=== PATIENT | male | born 1970 | race Caucasian/White ===

== ENCOUNTER 2016-06-19 05:57 | Emergency (ER) | payer BC ==
[2016-06-19 06:05] VITALS: BMI 30.1
[2016-06-19 06:10] VITALS: RESP 16
[2016-06-19] MEDS ORDERED: DiphenhydrAMINE 50 mg/ml Inj IVP STA (06:24)
--- NOTE | 2016-06-19 06:25 | ED PDOC ---
Arrival/HPI - History of Present Illness Time/Duration: Prior to Arrival Symptom Onset: Sudden Symptom Course: Unchanged Quality: Stabbing, Throbbing Severity Level: 10 Activities at Onset: Rest <Flor Ho - Last Filed: 06/19/16 07:05> <Bipin France - Last Filed: 06/19/16 11:22> - General Chief Complaint: Headache Time Seen by Provider: 06/19/16 06:00 - History of Present Illness Narrative History of Present Illness (Text): 06/19/16 06:25 46 yo M with no past medical history presents to ER with c/o waking up from sleep this morning with holocephalic headache. Patient's is at bedside and states patient sometimes gets sinus headaches but has never had anything like this before. Patient admits to photophobia, otherwise denies nausea, vomiting, recent travel, recent illness, sick contacts, CP, SOB, abd pain, fevers, chills. Patient described headache as 10/10 holocephalic, throbbing, sharp, constant headache with no alleviating factors. Patient's states he had no problems prior to this episode. (Flor Ho) Past Medical History - Provider Review Nursing Documentation Reviewed: Yes - Travel History Have you recently traveled outside [place] w/in the past 3 mons?: No - Psychiatric Hx Substance Use: No <Flor Ho - Last Filed: 06/19/16 07:05> Family/Social History - Physician Review Nursing Documentation Reviewed: Yes Family/Social History: Unknown Family HX Smoking Status: Never Smoked Hx Alcohol Use: No Hx Substance Use: No <Flor Ho - Last Filed: 06/19/16 07:05> Allergies/Home Meds <Flor Ho - Last Filed: 06/19/16 07:05> <Bipin France - Last Filed: 06/19/16 11:22> Allergies/Adverse Reactions: Allergies No Known Allergies Allergy (Verified 06/19/16 06:04) Home Medications: Home Meds Medication Instructions Recorded Confirmed No Known Home Med 06/19/16 06/19/16 Review of Systems - Physician Review All systems were reviewed & negative as marked: Yes - Review of Systems Constitutional: absent: Fatigue, Fevers Eyes: absent: Vision Changes ENT: absent: Hearing Changes, Tinnitus, Sinus Congestion Respiratory: absent: SOB, Cough Cardiovascular: absent: Chest Pain, Palpitations, Syncope Gastrointestinal: absent: Abdominal Pain, Diarrhea, Vomiting, Hematochezia, Hematemesis Genitourinary Male: absent: Dysuria, Frequency Musculoskeletal: absent: Back Pain, Neck Pain, Myalgias Skin: absent: Rash, Skin Lesions Neurological: Headache. absent: Dizziness, Focal Weakness, Facial Droop, Disequilibrium, Seizure Hemo/Lymphatic: absent: Easy Bleeding, Easy Bruising Psychiatric: absent: Anxiety, Depression <Flor Ho Filed: 06/19/16 07:05> Physical Exam Vital Signs Reviewed: Yes Temperature: Afebrile Blood Pressure: Hypertensive Pulse: Regular Respiratory Rate: Normal Appearance: Positive for: Non-Toxic, Uncomfortable Mental Status: Positive for: Alert and Oriented X 3 - Systems Exam Head: Present: Atraumatic, Normocephalic Pupils: Present: PERRL Extroacular Muscles: Present: EOMI Conjunctiva: Present: Normal Mouth: Present: Moist Mucous Membranes Neck: No: Meningeal Signs, JVD Respiratory/Chest: Present: Clear to Auscultation, Good Air Exchange. No: Respiratory Distress, Accessory Muscle Use, Wheezes, Rhonchi Cardiovascular: Present: Regular Rate and Rhythm, Normal S1, S2 Abdomen: Present: Normal Bowel Sounds. No: Tenderness, Distention, Peritoneal Signs Upper Extremity: Present: Normal Inspection. No: Cyanosis, Edema Lower Extremity: Present: Normal Inspection. No: Edema, CALF TENDERNESS Neurological: Present: GCS=15, CN II-XII Intact, Speech Normal Skin: Present: Warm, Dry, Normal Color. No: Rashes Psychiatric: Present: Alert, Oriented x 3 <Flor Ho Filed: 06/19/16 07:05> Vital Signs Temp Pulse Resp BP Pulse Ox 06/19/16 08:00 60 16 137/80 97 06/19/16 06:48 62 16 151/90 H 98 06/19/16 06:09 97.9 F 58 L 16 167/98 H 99 Medical Decision Making Re-evaluation Time: 06:55 Reassessment Condition: Re-examined, Improved - EKG Interpretation Interpreted by ED Physician: Yes Type: 12 lead EKG <Flor Ho Filed: 06/19/16 07:05> <Bipin France - Last Filed: 06/19/16 11:22> ED Course and Treatment: 06/19/16 06:38 46 yo M w no history presents with 10/10 holocephalic throbbing, dull, constant headache. CT head to r/o ICH. Decadron, Benadryl, Reglan. Labs, EKG. Reassess and dispo. 06/19/16 06:55 Patient states he is feeling better, light slightly less bothersome. Has not yet received Decadron and states his headache is minimal s/p reglan. CT head negative for ICH. 06/19/16 07:[address] Navarro. ([facility]) 06/19/16 06:40 Pt. was interviewed and examined along with the medical sales specialist.Concurr with physical findings ,assessment and treatment plan. (Bipin France) - Lab Interpretations Lab Results: 06/19/16 06:50 06/19/16 06:50 Lab Results 06/19/16 06:50: WBC 5.1, RBC 4.60, Hgb 13.7 L, Hct 39.6 L, MCV 86.1, MCH 29.8, MCHC 34.6, RDW 13.7, Plt Count 230, MPV 11.4 H, Gran % 56.0, Lymph % (Auto) 36.9 H, [place] % (Auto) 5.5, Eos % (Auto) 1.2 L, Baso % (Auto) 0.4, Gran # 2.87, Lymph # 1.9, [place] # 0.3, Eos # 0.1, Baso # 0.02, PT 11.8, INR 1.09 H, APTT 25.4 , Sodium 141, Potassium 3.3 L, Chloride 105, Carbon Dioxide 24, Anion Gap 15, BUN 8, Creatinine 0.9, Est GFR ( Amer) > 60, Est GFR (Non-Af Amer) > 60, Random Glucose 116 H, Calcium 8.7, Total Bilirubin 0.7, AST 34, ALT 40, Alkaline Phosphatase 60, Total Protein 7.5, Albumin 3.7, Globulin 3.8, Albumin/ Globulin Ratio 1.0 L, Blood Type B POSITIVE, Antibody Screen Negative, BBK History Checked No verified bt - RAD Interpretation Radiology Orders: 06/19/16 06:17 HEAD W/O CONTRAST [CT] Stat 06/19/16 08:52 BRAIN WITHOUT CONTRAST [MRI] Stat MRA HEAD WITHOUT CONTRAST [MRI] Stat - EKG Interpretation EKG Interpretation (Text): 06/19/16 07:01 NSR 61bpm, 1st degree AVB (TX 222ms), no ischemic changes (Flor Ho) - Medication Orders Current Medication Orders: Discontinued Medications Dexamethasone (Decadron Inj) 10 mg IVP STAT STA Stop: 06/19/16 06:47 Last Admin: 06/19/16 07:12 Dose: Not Given Non-Admin Reason: Patient Refused Diphenhydramine HCl (Benadryl) 25 mg IVP STAT STA Stop: 06/19/16 06:25 Last Admin: 06/19/16 06:42 Dose: 25 MG IVP Administration Document 06/19/16 06:42 YP (Rec: 06/19/16 06:42 [facility] [id number] Charges for Administration # of IVP Administrations 1 Ketorolac Tromethamine (Toradol) 30 mg IVP STAT STA Stop: 06/19/16 06:59 Last Admin: 06/19/16 07:12 Dose: Not Given Non-Admin Reason: Patient Refused Metoclopramide HCl (Reglan) 10 mg IVP STAT STA Stop: 06/19/16 06:25 Last Admin: 06/19/16 06:42 Dose: 10 MG IVP Administration Document 06/19/16 06:42 YP (Rec: 06/19/16 06:42 [facility] [id number] Charges for Administration # of IVP Administrations 1 Potassium Chloride (K-Dur 20 Meq Er Tab) 20 meq PO STAT STA Stop: 06/19/16 07:49 Last Admin: 06/19/16 08:24 Dose: 20 MEQ - PA / ACCOUNTANT CONTROLLER / Resident Statement RHONDA has reviewed & agrees with the documentation as recorded. / has examined the patient and agrees with the treatment plan. <Bipin [place] - Last Filed: 06/19/16 11:22> Disposition/Present on Arrival - Present on Arrival Any Indicators Present on Arrival: No History of DVT/PE: No History of Uncontrolled Diabetes: No Urinary Catheter: No History of Decub. Ulcer: No History Surgical Site Infection Following: None <Flor Ho - Last Filed: 06/19/16 07:05> - Present on Arrival Any Indicators Present on Arrival: No - Disposition Have Diagnosis and Disposition been Completed?: No Disposition Time: 07:00 <Bipin France - Last Filed: 06/19/16 11:22> - Disposition Diagnosis: Headache Condition: STABLE Referrals: PCP,NO [Primary Care Provider] - Follow up with primary
[2016-06-19 06:54] LABS: ADD MANUAL DIFF? NO
[2016-06-19 07:02] LABS: BASO # 0.02 K/mm3 (0.0-2.0); BASO % 0.4 % (0.0-3.0); EOS # 0.1 (0.0-0.7); EOS % 1.2 % (1.5-5.0); GRAN # 2.87 (1.4-6.5); HEMATOCRIT 39.6 % (42.0-52.0); LYMPH # 1.9 (1.2-3.4); LYMPH % 36.9 % (22.0-35.0); MEAN CELL VOLUME 86.1 fL (80.0-105.0); MEAN CORPUSCULAR HEMOGLOBIN 29.8 pg (25.0-35.0); MEAN CORPUSCULAR HGB CONC 34.6 g/dl (31.0-37.0); MEAN PLATELET VOLUME 11.4 fl (7.0-11.0); MONO # 0.3 (0.1-0.6); MONO % 5.5 % (1.0-6.0); PLATELET COUNT 230 10^3/uL (120.0-450.0); RED CELL DISTRIBUTION WIDTH 13.7 % (11.5-14.5); WHITE BLOOD COUNT 5.1 10^3/ul (4.5-11.0)
[2016-06-19 07:10] LABS: INR 1.09 (0.93-1.08); PARTIAL THROMBOPLASTIN TIME 25.4 Seconds (23.7-30.8)
[2016-06-19 07:16] LABS: ALKALINE PHOSPHATASE 60 U/L (38-133); ALT/SGPT 40 U/L (7-56); AST/SGOT 34 U/L (15-59); BILIRUBIN,TOTAL 0.7 mg/dL (0.2-1.3); BLOOD UREA NITROGEN 8 mg/dL (7-21); CALCIUM 8.7 mg/dL (8.4-10.5); CARBON DIOXIDE 24 mmol/L (21-33); CHLORIDE 105 mmol/L (98-107); GFR AFRICAN-AMERICAN > 60; GLUCOSE,RANDOM 116 mg/dL (70-110); POTASSIUM 3.3 mmol/L (3.6-5.0); SODIUM 141 mmol/L (132-148); TOTAL PROTEIN 7.5 g/dL (5.8-8.3)
--- NOTE | 2016-06-19 07:24 | ED PDOC ---
Physical Exam Vital Signs Reviewed: Yes Vital Signs Temp Pulse Resp BP Pulse Ox 06/19/16 09:40 98 F 64 16 148/88 99 06/19/16 08:00 60 16 137/80 97 06/19/16 06:48 62 16 151/90 H 98 06/19/16 06:09 97.9 F 58 L 16 167/98 H 99 Temperature: Afebrile Blood Pressure: Hypertensive Pulse: Bradycardic Respiratory Rate: Normal Medical Decision Making ED Course and Treatment: 06/19/16 07:23 Patient endorsed to me by Dr. France at 07:00. Pending and labs and re- assessment. Patient presented with a headache. 06/19/16 07:47 On re-evaluation, patient states his headache has completely resolved. Patient received Reglan prior to my evaluation. Repeat neuro exam completely intact. Plan is to observe patient awaiting official CT head reading. Report Date : 06/19/2016 08:07:54 PROCEDURE: CT HEAD WITHOUT CONTRAST. Dictator : Manoj Shah MD IMPRESSION: Small hypodensity in the left basal ganglia on series 2, image 23 may represent a dilated perivascular space versus small lacunar infarct. No additional acute intracranial abnormality. If focal neurologic deficit persists , consider MRI. Report Date : 06/19/2016 11:03:57 PROCEDURE: MRI BRAIN WITHOUT CONTRAST Dictator : Cristofer Jones MD IMPRESSION: Unremarkable non contrast enhanced MRI of the brain. Report Date : 06/19/2016 11:06:09 PROCEDURE: Magnetic Resonance Angiography Brain Dictator : Cristofer Jones MD IMPRESSION: Unremarkable MR angiography of the brain. 06/19/16 11:[address] findings, consulted case with on-call neurologist. Brain MRI/MRA ordered, which showed unremarkable results. Patients pain has completely resolved. Repeat neuro exam intact. Based on lack of discomfort and unremarkable imaging studies patient will be discharged home. Patient instructed to follow up with neurologist and PMD. - Lab Interpretations Lab Results: 06/19/16 06:50 06/19/16 06:50 Lab Results 06/19/16 06:50: WBC 5.1, RBC 4.60, Hgb 13.7 L, Hct 39.6 L, MCV 86.1, MCH 29.8, MCHC 34.6, RDW 13.7, Plt Count 230, MPV 11.4 H, Gran % 56.0, Lymph % (Auto) 36.9 H, [place] % (Auto) 5.5, Eos % (Auto) 1.2 L, Baso % (Auto) 0.4, Gran # 2.87, Lymph # 1.9, [place] # 0.3, Eos # 0.1, Baso # 0.02, PT 11.8, INR 1.09 H, APTT 25.4 , Sodium 141, Potassium 3.3 L, Chloride 105, Carbon Dioxide 24, Anion Gap 15, BUN 8, Creatinine 0.9, Est GFR ( Amer) > 60, Est GFR (Non-Af Amer) > 60, Random Glucose 116 H, Calcium 8.7, Total Bilirubin 0.7, AST 34, ALT 40, Alkaline Phosphatase 60, Total Protein 7.5, Albumin 3.7, Globulin 3.8, Albumin/ Globulin Ratio 1.0 L, Blood Type B POSITIVE, Antibody Screen Negative, BBK History Checked No verified bt - RAD Interpretation Radiology Orders: 06/19/16 06:17 HEAD W/O CONTRAST [CT] Stat 06/19/16 08:52 BRAIN WITHOUT CONTRAST [MRI] Stat MRA HEAD WITHOUT CONTRAST [MRI] Stat - Medication Orders Current Medication Orders: Discontinued Medications Dexamethasone (Decadron Inj) 10 mg IVP STAT STA Stop: 06/19/16 06:47 Last Admin: 06/19/16 07:12 Dose: Not Given Non-Admin Reason: Patient Refused Diphenhydramine HCl (Benadryl) 25 mg IVP STAT STA Stop: 06/19/16 06:25 Last Admin: 06/19/16 06:42 Dose: 25 MG IVP Administration Document 06/19/16 06:42 YP (Rec: 06/19/16 06:42 YP [facility] [id number]) Charges for Administration # of IVP Administrations 1 Ketorolac Tromethamine (Toradol) 30 mg IVP STAT STA Stop: 06/19/16 06:59 Last Admin: 06/19/16 07:12 Dose: Not Given Non-Admin Reason: Patient Refused Metoclopramide HCl (Reglan) 10 mg IVP STAT STA Stop: 06/19/16 06:25 Last Admin: 06/19/16 06:42 Dose: 10 MG IVP Administration Document 06/19/16 06:42 YP (Rec: 06/19/16 06:42 YP [facility] [id number]) Charges for Administration # of IVP Administrations 1 Potassium Chloride (K-Dur 20 Meq Er Tab) 20 meq PO STAT STA Stop: 06/19/16 07:49 Last Admin: 06/19/16 08:24 Dose: 20 MEQ - Scribe Statement The provider has reviewed the documentation as recorded by the Dajuanibdenver Torres Provider Scribe Attestation: All medical record entries made by the Scribe were at my direction and personally dictated by me. I have reviewed the chart and agree that the record accurately reflects my personal performance of the history, physical exam, medical decision making, and the department course for this patient. I have also personally directed, reviewed, and agree with the discharge instructions and disposition. Disposition/Present on Arrival - Present on Arrival Any Indicators Present on Arrival: No History of DVT/PE: No History of Uncontrolled Diabetes: No Urinary Catheter: No History of Decub. Ulcer: No History Surgical Site Infection Following: None - Disposition Have Diagnosis and Disposition been Completed?: Yes Diagnosis: Headache Disposition: HOME/ ROUTINE Disposition Time: 11:33 Patient Plan: Discharge Condition: GOOD Discharge Instructions (ExitCare): Acute Headache (ED) Additional Instructions: For any return of headache, any fever, any visual symptoms, any neck pain, any nausea or vomiting, any numbness or weakness, any pain with eye movements, any fever, any rash, any return of ANY symptoms, get rechecked immediately. Follow-up with your primary care doctor and neurologist as directed. Prescriptions: Metoclopramide [Reglan] 10 mg PO BID PRN #6 tab PRN Reason: Headache Referrals: Nahid Howell MD [Staff Provider] - Follow up with primary Cristian Bjawa MD [Staff Provider] - Follow up with primary Forms: WORK NOTE
[2016-06-19] MEDS ORDERED: Potassium Chloride 20 mEq ER Tab PO STA (07:48)
--- NOTE | 2016-06-19 08:09 | CT ---
PROCEDURE: CT HEAD WITHOUT CONTRAST. HISTORY: worst headache of life COMPARISON: None available. TECHNIQUE: Axial computed tomography images were obtained through the head/brain without intravenous contrast. Radiation dose: Total exam DLP = 677 mGy-cm. This CT exam was performed using one or more of the following dose reduction techniques: Automated exposure control, adjustment of the mA and/or kV according to patient size, and/or use of iterative reconstruction technique. FINDINGS: HEMORRHAGE: No intracranial hemorrhage. BRAIN: No mass effect or edema. No atrophy or chronic microvascular ischemic changes. Small hypodensity in the left basal ganglia on series 2, image 23 may represent a dilated perivascular space versus small lacunar infarct. Limited evaluation of the posterior fossa given streak artifact. VENTRICLES: Unremarkable. No hydrocephalus. CALVARIUM: Unremarkable. PARANASAL SINUSES: Unremarkable as visualized. No significant inflammatory changes. MASTOID AIR CELLS: Unremarkable as visualized. No inflammatory changes. OTHER FINDINGS: None. IMPRESSION: Small hypodensity in the left basal ganglia on series 2, image 23 may represent a dilated perivascular space versus small lacunar infarct. No additional acute intracranial abnormality. If focal neurologic deficit persists, consider MRI. These findings were preliminarily reported at 6:53 a.m. on 06/19/[address] Micaela Mclean from [employer]
--- NOTE | 2016-06-19 11:05 | MRI ---
PROCEDURE: MRI BRAIN WITHOUT CONTRAST HISTORY: possible brain lesion COMPARISON: None. TECHNIQUE: Multiplanar, multisequence MR images of the brain were obtained without intravenous contrast enhancement. FINDINGS: HEMORRHAGE: None DWI: No evidence of an acute or early subacute infarction. BRAIN PARENCHYMA: No mass effect or edema. No atrophy or chronic microvascular ischemic changes. VENTRICLES: Unremarkable. No hydrocephalus. CRANIUM: Unremarkable. ORBITS: Grossly unremarkable. PARANASAL SINUSES/MASTOIDS: Clear VASCULAR SYSTEM: Skull base flow voids intact. OTHER FINDINGS: None. IMPRESSION: Unremarkable non contrast enhanced MRI of the brain.
--- NOTE | 2016-06-19 11:07 | MRI ---
PROCEDURE: Magnetic Resonance Angiography Brain HISTORY: headache, ? ct findings COMPARISON: None available. TECHNIQUE: 3D time of flight MR angiography of the intracranial arteries was performed. Rotating maximum intensity projection images were generated. FINDINGS: INTERNAL CEREBRAL ARTERIES: Unremarkable. The skull base, petrous, cavernous and supraclinoid segments are bilaterally widely patient. ANTERIOR CEREBRAL ARTERIES: Unremarkable. A1 and A2 segments are widely patent. Smaller distal branches unremarkable, as visualized. MIDDLE CEREBRAL ARTERIES: Unremarkable. M1 and M2 segments are widely patent. Perisylvian branches grossly symmetric. POSTERIOR CIRCULATION: Basilar Artery: Unremarkable. Distal Vertebral Arteries: Unremarkable. Posterior Cerebral Arteries: Unremarkable. Posterior Inferior Cerebellar Arteries: Unremarkable. ANEURYSM/ VASCULAR MALFORMATIONS: None. OTHER FINDINGS: None. IMPRESSION: Unremarkable MR angiography of the brain.
[2016-06-19 11:45] VITALS: O2SAT 99
[2016-06-19 11:48] VITALS: BP 137/90; PULSE 66; TEMP 98.7
--- NOTE | 2016-06-19 15:31 | CARD ---
APPROVED REPORT EKG Measurement Heart [id number] <Conclusion> Sinus rhythm with 1st degree AV block Moderate voltage criteria for LVH, may be normal variant Borderline ECG
== END 2016-06-19 12:01 | disposition home or self-care (01) ==
LOC: ED 05:57
DX: R51 Headache (principal)
CPT/HCPCS: 70450; 70544; 70551; 80053; 85025; 85610; 85730; 86850; 86900; 93005; 96374; 96375; 99285; J1200; J2765